=== PATIENT | male | born 1970 | race Caucasian/White ===

== ENCOUNTER 2022-06-05 16:36 | Inpatient (IN) | payer BC ==
[2022-06-05 17:39] VITALS: BMI 34.2
[2022-06-05] MEDS ORDERED: MAGNESIUM HYDROX 2400MG/30ML ORAL SUSPENSION 30 ML CUP PO PRN (18:34)
[2022-06-05] MEDS ORDERED: NALOXONE HCL (KLOXXADO) 8 MG SPRAY NS PRN (18:34)
[2022-06-05] MEDS ORDERED: NALOXONE HCL 0.4 MG/ML VIAL IM PRN (18:34)
[2022-06-05] MEDS ORDERED: P-EPHED 60MG/TRIPROLIDI 2.5MG TABLET PO PRN (18:34)
[2022-06-05] MEDS ORDERED: MAG HYDROX/AL HYDROX/SIMETH 30 ML UNIT-DOSE CUP PO PRN (18:34)
[2022-06-05] MEDS ORDERED: guaiFENesin 200 MG/10 ML 10 ML UNIT-DOSE CUPS PO PRN (18:34)
[2022-06-05] MEDS ORDERED: MAGNESIUM CITRATE 300 ML BOTTLE PO PRN (18:34)
[2022-06-05] MEDS ORDERED: IBUPROFEN 400 MG TABLET (FP) PO PRN (18:34)
[2022-06-05] MEDS ORDERED: NICOTINE 10 MG CARTRIDGE (INHALER) IH PRN (18:34)
[2022-06-05] MEDS ORDERED: ACETAMINOPHEN 325 MG TABLET (FP) PO PRN (18:34)
[2022-06-05] MEDS ORDERED: LOPERAMIDE HCL 2 MG CAPSULE PO PRN (18:34)
[2022-06-05] MEDS ORDERED: MELATONIN 5 MG TABLETS PO SCH (22:00)
[2022-06-05] MEDS ORDERED: THIAMINE HCL 100 MG TABLET (FP) PO SCH (22:00)
[2022-06-05] MEDS: hydrOXYzine PAMOATE 25 MG CAPSULE (FP) PO PRN (22:31)
[2022-06-05] MEDS ORDERED: hydrOXYzine PAMOATE 25 MG CAPSULE (FP) PO ONE (22:32)
[2022-06-06 06:58] VITALS: RESP 16; TEMP 97.7
[2022-06-06] MEDS: hydrOXYzine PAMOATE 25 MG CAPSULE (FP) PO PRN (07:55)
[2022-06-06] MEDS ORDERED: NICOTINE 7 MG/24 HOURS TOPICAL PATCH TD SCH (10:00)
[2022-06-06] MEDS ORDERED: PRENATAL VITAMINS W/ FOLIC ACID TABLET (FP) PO SCH (10:00)
[2022-06-06 10:12] LABS: HEMATOCRIT 44.3 % (35.4-49); HEMOGLOBIN 14.4 GM/dL (11.7-16.9); MCH 28.4 pg (25.7-33.7); MCHC 32.5 g/dl (32.0-35.9); MEAN CELL VOLUME 87.5 fl (80-96); MEAN PLT VOLUME 8.4 fl (7.5-11.1); PLATELET COUNT 381 10^3/uL (134-434); RBC 5.06 M/mm3 (4.00-5.60); RDW 14.7 % (11.9-15.9); WHITE BLOOD COUNT 14.7 K/mm3 (4.0-10.0)
[2022-06-06 10:38] VITALS: BP 153/83
[2022-06-06] MEDS ORDERED: IBUPROFEN 600 MG TABLET (FP) PO PRN (10:43)
[2022-06-06] MEDS ORDERED: BENZOCAINE/MENTHOL (CHLORASEPTIC ) LOZENGE MM PRN (10:43)
[2022-06-06] MEDS ORDERED: BISMUTH SUBSALICYLATE 524 MG/30 ML PO PRN (10:43)
[2022-06-06] MEDS ORDERED: DICYCLOMINE HCL 10 MG CAPSULE PO PRN (10:43)
[2022-06-06] MEDS ORDERED: METHOCARBAMOL 500 MG TABLET PO PRN (10:43)
[2022-06-06] MEDS ORDERED: ONDANSETRON *ODT* 4 MG TABLET SL PRN (10:43)
[2022-06-06 11:05] LABS: ALBUMIN 3.4 g/dl (3.4-5.0); BLOOD UREA NITROGEN 15.6 mg/dL (7-18); CALCIUM 8.7 mg/dL (8.5-10.1)
[2022-06-06 11:07] VITALS: PULSE 98
[2022-06-06 11:08] LABS: CREATININE 0.8 mg/dL (0.55-1.3)
[2022-06-06 11:10] LABS: BILIRUBIN,TOTAL 0.4 mg/dL (0.2-1); TOT PROT 6.8 g/dl (6.4-8.2)
[2022-06-06 11:43] LABS: SYPHILIS W/ RPR CONF NON-REACTIVE (NONREACTIVE)
[2022-06-06] MEDS ORDERED: FLU VACC QS2022-23(6MOS UP)/PF 60 MCG/0.5 ML SYRINGE IM ONE (12:00)
== END 2022-06-06 11:39 | disposition short-term general hospital (02) | DRG 772 ==
LOC: YASAS 16:36 → Y5N 22:18
PROVIDERS: ADMIT Allergy & Immunology; ATTEND Psychiatry & Neurology Pain Medicine
PROC: HZ42ZZZ Group Counseling for Substance Abuse Treatment, Cognitive-Behavioral (ICD-10-PCS; principal; 2022-06-05)
DX: F11.20 Opioid dependence, uncomplicated (principal); F14.20 Cocaine dependence, uncomplicated; F12.20 Cannabis dependence, uncomplicated; F17.210 Nicotine dependence, cigarettes, uncomplicated; S62.606D Fracture of unspecified phalanx of right little finger, subsequent encounter for fracture with routine healing; X58.XXXD Exposure to other specified factors, subsequent encounter
CPT/HCPCS: 36415; 80053; 85027; 86780; 86803; C9803-CS; U0003; U0005

== ENCOUNTER 2022-06-06 11:57 | Inpatient (IN) | payer BC ==
[~2022-06-06 11:57] MED LIST: ACETAMINOPHEN 325 MG TABLET (FP) PO PRN; BENZOCAINE/MENTHOL (CHLORASEPTIC ) LOZENGE MM PRN; BISMUTH SUBSALICYLATE 262 MG/15 ML BTL PO PRN; DICYCLOMINE HCL 10 MG CAPSULE PO PRN; IBUPROFEN 400 MG TABLET (FP) PO PRN; IBUPROFEN 600 MG TABLET (FP) PO PRN; LOPERAMIDE HCL 2 MG CAPSULE PO PRN; MAG HYDROX/AL HYDROX/SIMETH 30 ML UNIT-DOSE CUP PO PRN; MAGNESIUM HYDROX 2400MG/30ML ORAL SUSPENSION 30 ML CUP PO PRN; NALOXONE HCL (KLOXXADO) 8 MG SPRAY NS PRN; NALOXONE HCL 0.4 MG/ML VIAL IM PRN; P-EPHED 60MG/TRIPROLIDI 2.5MG TABLET PO PRN; POLYETHYLENE GLYCOL (HEALTHYLAX) 3350 17 GM PACKET PO PRN; guaiFENesin 200 MG/10 ML 10 ML UNIT-DOSE CUPS PO PRN; methaDONE HCL 10 MG TABLET (FOR DETOX USE ONLY) PO ONE
[2022-06-06] MEDS: cloNIDine HCL 0.1 MG TABLET PO PRN ×2 (12:20→22:31)
[2022-06-06] MEDS: ONDANSETRON *ODT* 4 MG TABLET SL PRN (14:00)
[2022-06-06] MEDS: THIAMINE HCL 100 MG TABLET (FP) PO SCH (22:31)
[2022-06-06] MEDS: MELATONIN 5 MG TABLETS PO PRN (22:31)
[2022-06-06] MEDS: METHOCARBAMOL 500 MG TABLET PO PRN (22:31)
[2022-06-07] MEDS: cloNIDine HCL 0.1 MG TABLET PO PRN ×3 (10:14→23:08)
[2022-06-07] MEDS: ONDANSETRON *ODT* 4 MG TABLET SL PRN (10:14)
[2022-06-07] MEDS: METHOCARBAMOL 500 MG TABLET PO PRN ×3 (10:15→23:08)
[2022-06-07] MEDS: PRENATAL VITAMINS W/ FOLIC ACID TABLET (FP) PO SCH (10:15)
[2022-06-07] MEDS: hydrOXYzine PAMOATE 25 MG CAPSULE (FP) PO PRN (16:01)
[2022-06-07] MEDS: THIAMINE HCL 100 MG TABLET (FP) PO SCH (22:51)
[2022-06-07] MEDS: MELATONIN 5 MG TABLETS PO PRN (23:08)
[2022-06-07] MEDS: TRIMETHOBENZAMIDE HCL 200MG/2ML INJ IM PRN (23:55)
[2022-06-08] MEDS: cloNIDine HCL 0.1 MG TABLET PO PRN ×2 (03:14→08:33)
[2022-06-08] MEDS: hydrOXYzine PAMOATE 25 MG CAPSULE (FP) PO PRN ×2 (03:15→08:33)
[2022-06-08] MEDS: METHOCARBAMOL 500 MG TABLET PO PRN (08:33)
[2022-06-08] MEDS: TRIMETHOBENZAMIDE HCL 200MG/2ML INJ IM PRN (08:33)
[2022-06-08] MEDS: ONDANSETRON *ODT* 4 MG TABLET SL PRN (08:33)
[2022-06-08 09:15] VITALS: RESP 17
[2022-06-08] MEDS ORDERED: methaDONE HCL 10 MG TABLET (FOR DETOX USE ONLY) PO ONE (10:00)
[2022-06-08] MEDS: PRENATAL VITAMINS W/ FOLIC ACID TABLET (FP) PO SCH (10:26)
[2022-06-08] MEDS ORDERED: diazePAM 5 MG TABLET PO ONE (11:05)
[2022-06-08] MEDS: THIAMINE HCL 100 MG TABLET (FP) PO SCH (21:19)
[2022-06-09 06:36] VITALS: BP 124/81; PULSE 85; TEMP 97
[2022-06-10] MEDS ORDERED: methaDONE HCL 10 MG TABLET (FOR DETOX USE ONLY) PO ONE (10:00)
== END 2022-06-08 23:55 | disposition short-term general hospital (02) | DRG 773 ==
LOC: YASAS 11:57 → Y3N 11:58
PROVIDERS: ADMIT Allergy & Immunology; ATTEND Surgery
PROC: HZ2ZZZZ Detoxification Services for Substance Abuse Treatment (ICD-10-PCS; principal; 2022-06-06)
DX: F10.230 Alcohol dependence with withdrawal, uncomplicated (principal); F11.23 Opioid dependence with withdrawal; F13.20 Sedative, hypnotic or anxiolytic dependence, uncomplicated; F14.20 Cocaine dependence, uncomplicated; F17.210 Nicotine dependence, cigarettes, uncomplicated; D72.829 Elevated white blood cell count, unspecified; R11.2 Nausea with vomiting, unspecified
CPT/HCPCS: Q0162

== ENCOUNTER 2022-06-08 11:58 | Inpatient (IN) | payer BC ==
[2022-06-08] MEDS ORDERED: SODIUM CHLORIDE 0.9% 500 ML INFUS.BAG IV ONE (12:49)
[2022-06-08 15:09] LABS: VENOUS BASE EXCESS 4.8 mmol/L (-2-2); VENOUS O2 SATURATION 97.5 % (70-80); VENOUS PCO2 33.1 mmHg (38-52); VENOUS PH 7.531 (7.310-7.410)
[2022-06-08 15:36] LABS: BASO % 0.3 % (0-2.0); HEMATOCRIT 41.5 % (35.4-49); HEMOGLOBIN 13.7 GM/dL (11.7-16.9); LYMPH % 7.8 % (8-40); MCH 28.7 pg (25.7-33.7); MCHC 33.1 g/dl (32.0-35.9); MEAN CELL VOLUME 86.7 fl (80-96); MEAN PLT VOLUME 7.8 fl (7.5-11.1); MONO % 7.2 % (3.8-10.2); NEUT % 84.7 % (42.8-82.8); PLATELET COUNT 375 10^3/uL (134-434); RBC 4.79 M/mm3 (4.00-5.60)
[2022-06-08 15:55] LABS: MAGNESIUM 1.8 mg/dL (1.8-2.4)
[2022-06-08 15:56] LABS: ALBUMIN 3.2 g/dl (3.4-5.0); BLOOD UREA NITROGEN 19.6 mg/dL (7-18); CALCIUM 8.7 mg/dL (8.5-10.1)
[2022-06-08 15:58] LABS: CREATININE 0.9 mg/dL (0.55-1.3)
[2022-06-08 16:00] LABS: PHOSPHOROUS 3.1 mg/dL (2.5-4.9); TOT PROT 6.4 g/dl (6.4-8.2)
[2022-06-08 16:02] LABS: BILIRUBIN,TOTAL 0.6 mg/dL (0.2-1)
[2022-06-08] MEDS ORDERED: MAG HYDROX/AL HYDROX/SIMETH 30 ML UNIT-DOSE CUP PO ONE (17:59)
[2022-06-08] MEDS ORDERED: ONDANSETRON 4 MG/2 ML VIAL IVPB ONE (17:59)
[2022-06-08] MEDS ORDERED: FAMOTIDINE 20 MG/50 ML IVPB 20 MG/50 ML MG IVPB ONE ×2 (18:20→18:26)
[2022-06-08] MEDS ORDERED: MAG HYDROX/AL HYDROX/SIMETH 30 ML UNIT-DOSE CUP ONE (18:26)
[2022-06-08] MEDS ORDERED: ONDANSETRON 4 MG/2 ML VIAL ONE (18:27)
[2022-06-08] MEDS ORDERED: LACTATED RINGERS SOLUTION 1000 ML INFUS.BAG IV ONE (18:40)
[2022-06-08] MEDS ORDERED: ONDANSETRON 4 MG/2 ML VIAL IVPUSH ONE (21:44)
[2022-06-08] MEDS ORDERED: PANTOPRAZOLE SODIUM 40 MG VIAL IVPUSH ONE (22:56)
[2022-06-09] MEDS ORDERED: FOLIC ACID INJECTION - 1 MG, THIAMINE HCL 100 MG, MULTIVIT INJECTION ADULT 10 ML in SOD... IVPB ONE (01:47)
[2022-06-09] MEDS ORDERED: TRIMETHOBENZAMIDE HCL 200MG/2ML INJ IM PRN (01:52)
[2022-06-09] MEDS ORDERED: cloNIDine HCL 0.1 MG TABLET PO PRN (01:53)
[2022-06-09 01:57] LABS: PH,URINE 7.5 (5.0-8.0); URINE APPEARANCE CLEAR; URINE BILIRUBIN NEGATIVE (NEGATIVE); URINE COLOR YELLOW; URINE GLUCOSE (UA) NEGATIVE (NEGATIVE); URINE KETONE NEGATIVE (NEGATIVE); URINE LEUK ESTERASE NEGATIVE (NEGATIVE); URINE NITRITE NEGATIVE (NEGATIVE); URINE PROTEIN NEGATIVE (NEGATIVE)
[2022-06-09] MEDS ORDERED: POTASSIUM CHLORIDE TABS 10 MEQ TABLET.ER (FP) PO ONE (02:45)
[2022-06-09] MEDS ORDERED: MAGNESIUM SULF 50% (8.12 MEQ/2 ML-1 GM VIAL) IVPB ONE (02:45)
[2022-06-09] MEDS ORDERED: KCL 10 MEQ IVPB 10 MEQ/100 ML INFUS.BAG IVPB SCH (02:45)
[2022-06-09] MEDS: diazePAM 5 MG TABLET PO PRN (03:03)
[2022-06-09] MEDS: CEFAZOLIN 1 GM in DEXTROSE 5%-WATER - 50 ML IVPB SCH ×3 (03:21→17:42)
[2022-06-09] MEDS: diazePAM 5 MG TABLET PO SCH ×4 (05:45→22:22)
[2022-06-09 07:09] VITALS: BMI 34.0
[2022-06-09] MEDS ORDERED: POTASSIUM CHLORIDE TABS 20 MEQ TABLET.ER (FP) PO ONE (08:06)
[2022-06-09] MEDS ORDERED: SODIUM CHLORIDE 1,000 ML IV SCH (08:15)
[2022-06-09 11:11] LABS: BASO % 0.1 % (0-2.0); HEMATOCRIT 40.7 % (35.4-49); HEMOGLOBIN 13.3 GM/dL (11.7-16.9); LYMPH % 8.6 % (8-40); MCH 28.3 pg (25.7-33.7); MCHC 32.8 g/dl (32.0-35.9); MEAN CELL VOLUME 86.4 fl (80-96); MEAN PLT VOLUME 8.2 fl (7.5-11.1); MONO % 8.3 % (3.8-10.2); PLATELET COUNT 354 10^3/uL (134-434); RBC 4.71 M/mm3 (4.00-5.60); RDW 14.5 % (11.9-15.9); WHITE BLOOD COUNT 16.4 K/mm3 (4.0-10.0)
[2022-06-09] MEDS: FOLIC ACID 1 MG TABLET (FP) PO SCH (11:35)
[2022-06-09] MEDS: THIAMINE HCL 100 MG TABLET (FP) PO SCH (11:35)
[2022-06-09] MEDS: NICOTINE 14 MG/24 HOURS TOPICAL PATCH TD SCH (11:36)
[2022-06-09] MEDS: ENOXAPARIN NA (PORCINE) 40 MG/0.4 ML DISP.SYRIN SQ SCH (11:36)
[2022-06-09] MEDS: DOCUSATE SODIUM 100 MG CAPSULE (FP) PO SCH ×2 (15:03→22:22)
[2022-06-09] MEDS ORDERED: ACETAMINOPHEN 325 MG TABLET (FP) PO ONE (17:24)
[2022-06-10] MEDS: CEFAZOLIN 1 GM in DEXTROSE 5%-WATER - 50 ML IVPB SCH ×3 (01:28→17:25)
[2022-06-10] MEDS: diazePAM 5 MG TABLET PO PRN (02:52)
[2022-06-10] MEDS: diazePAM 5 MG TABLET PO SCH ×3 (05:53→21:35)
[2022-06-10] MEDS: DOCUSATE SODIUM 100 MG CAPSULE (FP) PO SCH ×3 (05:53→21:36)
[2022-06-10] MEDS ORDERED: CEFTRIAXONE 1,000 MG in DEXTROSE 5%-WATER - 50 ML IVPB ONE (09:07)
[2022-06-10] MEDS: THIAMINE HCL 100 MG TABLET (FP) PO SCH (09:18)
[2022-06-10] MEDS: FOLIC ACID 1 MG TABLET (FP) PO SCH (09:18)
[2022-06-10] MEDS: ENOXAPARIN NA (PORCINE) 40 MG/0.4 ML DISP.SYRIN SQ SCH (09:21)
[2022-06-10] MEDS: NICOTINE 14 MG/24 HOURS TOPICAL PATCH TD SCH (09:21)
[2022-06-10] MEDS ORDERED: methaDONE HCL 10 MG TABLET PO ONE (10:00)
[2022-06-10] MEDS: diazePAM 5 MG TABLET PO ONE (10:15)
[2022-06-10 11:31] LABS: BASO % 0.2 % (0-2.0); HEMATOCRIT 39.1 % (35.4-49); HEMOGLOBIN 12.9 GM/dL (11.7-16.9); LYMPH % 8.9 % (8-40); MCH 28.6 pg (25.7-33.7); MCHC 33.1 g/dl (32.0-35.9); MEAN CELL VOLUME 86.6 fl (80-96); MEAN PLT VOLUME 8.3 fl (7.5-11.1); NEUT % 82.9 % (42.8-82.8); PLATELET COUNT 368 10^3/uL (134-434); RBC 4.51 M/mm3 (4.00-5.60); RDW 14.3 % (11.9-15.9)
[2022-06-10 11:37] LABS: HEMATOCRIT 38.8 % (35.4-49); HEMOGLOBIN 12.7 GM/dL (11.7-16.9); MCH 28.5 pg (25.7-33.7); MCHC 32.8 g/dl (32.0-35.9); MEAN CELL VOLUME 86.7 fl (80-96); MEAN PLT VOLUME 8.2 fl (7.5-11.1); PLATELET COUNT 364 10^3/uL (134-434); RBC 4.47 M/mm3 (4.00-5.60); RDW 14.3 % (11.9-15.9); WHITE BLOOD COUNT 15.2 K/mm3 (4.0-10.0)
[2022-06-10] MEDS: LACTATED RINGERS SOLUTION 1,000 ML/1,000 ML INFUS.BAG IV SCH (11:46)
[2022-06-10 12:22] LABS: CALCIUM 8.3 mg/dL (8.5-10.1)
[2022-06-10 12:23] LABS: MAGNESIUM 2.3 mg/dL (1.8-2.4)
[2022-06-10 12:26] LABS: CREATININE 0.9 mg/dL (0.55-1.3); PHOSPHOROUS 2.3 mg/dL (2.5-4.9)
[2022-06-10 12:27] LABS: BLOOD UREA NITROGEN 9.7 mg/dL (7-18)
[2022-06-10 12:28] LABS: BILIRUBIN,TOTAL 0.5 mg/dL (0.2-1); TOT PROT 6.1 g/dl (6.4-8.2)
[2022-06-10 14:09] LABS: CALCIUM 8.4 mg/dL (8.5-10.1)
[2022-06-10 14:13] LABS: CREATININE 0.9 mg/dL (0.55-1.3)
[2022-06-10] MEDS ORDERED: ARTIFICIAL TEARS (POLYVINYL ALCOHOL) OPTH DROPS OU ONE (21:35)
[2022-06-11] MEDS: CEFAZOLIN 1 GM in DEXTROSE 5%-WATER - 50 ML IVPB SCH ×3 (01:10→17:15)
[2022-06-11] MEDS: LACTATED RINGERS SOLUTION 1,000 ML/1,000 ML INFUS.BAG IV SCH ×2 (03:45→13:15)
[2022-06-11] MEDS: diazePAM 5 MG TABLET PO SCH ×2 (06:08→17:40)
[2022-06-11] MEDS: DOCUSATE SODIUM 100 MG CAPSULE (FP) PO SCH ×3 (06:12→21:25)
[2022-06-11] MEDS: NICOTINE 14 MG/24 HOURS TOPICAL PATCH TD SCH (09:54)
[2022-06-11] MEDS: ENOXAPARIN NA (PORCINE) 40 MG/0.4 ML DISP.SYRIN SQ SCH (09:56)
[2022-06-11] MEDS: THIAMINE HCL 100 MG TABLET (FP) PO SCH (09:56)
[2022-06-11] MEDS: FOLIC ACID 1 MG TABLET (FP) PO SCH (09:56)
[2022-06-11] MEDS: ESCITALOPRAM OXALATE 10 MG TABLET PO SCH (09:56)
[2022-06-11 12:54] LABS: CALCIUM 8.8 mg/dL (8.5-10.1)
[2022-06-11 12:55] LABS: BLOOD UREA NITROGEN 9.8 mg/dL (7-18)
[2022-06-11 12:58] LABS: CREATININE 0.8 mg/dL (0.55-1.3)
[2022-06-11] MEDS: diazePAM 5 MG TABLET PO PRN ×2 (15:54→20:49)
[2022-06-11] MEDS: POTASSIUM CHLORIDE TABS 20 MEQ TABLET.ER (FP) PO SCH (16:00)
[2022-06-12] MEDS: CEFAZOLIN 1 GM in DEXTROSE 5%-WATER - 50 ML IVPB SCH ×3 (01:27→17:30)
[2022-06-12] MEDS: diazePAM 5 MG TABLET PO PRN (01:53)
[2022-06-12] MEDS: DOCUSATE SODIUM 100 MG CAPSULE (FP) PO SCH ×3 (06:34→21:57)
[2022-06-12] MEDS: diazePAM 5 MG TABLET PO ONE (06:35)
[2022-06-12 09:17] LABS: BASO % 0.2 % (0-2.0); EOS % 0.3 % (0-4.5); HEMATOCRIT 39.3 % (35.4-49); LYMPH % 14.7 % (8-40); MCH 28.6 pg (25.7-33.7); MCHC 33.1 g/dl (32.0-35.9); MEAN CELL VOLUME 86.2 fl (80-96); MEAN PLT VOLUME 8.2 fl (7.5-11.1); MONO % 3.9 % (3.8-10.2); NEUT % 80.9 % (42.8-82.8); PLATELET COUNT 385 10^3/uL (134-434); RBC 4.56 M/mm3 (4.00-5.60); WHITE BLOOD COUNT 13.9 K/mm3 (4.0-10.0)
[2022-06-12 09:27] LABS: BLOOD UREA NITROGEN 7.7 mg/dL (7-18); CALCIUM 8.9 mg/dL (8.5-10.1)
[2022-06-12 09:31] LABS: CREATININE 0.9 mg/dL (0.55-1.3)
[2022-06-12 09:33] LABS: BILIRUBIN,TOTAL 0.5 mg/dL (0.2-1); TOT PROT 6.1 g/dl (6.4-8.2)
[2022-06-12] MEDS: ESCITALOPRAM OXALATE 10 MG TABLET PO SCH (09:37)
[2022-06-12] MEDS: ENOXAPARIN NA (PORCINE) 40 MG/0.4 ML DISP.SYRIN SQ SCH (09:38)
[2022-06-12] MEDS: NICOTINE 14 MG/24 HOURS TOPICAL PATCH TD SCH (09:38)
[2022-06-12] MEDS: FOLIC ACID 1 MG TABLET (FP) PO SCH (09:38)
[2022-06-12] MEDS: POTASSIUM CHLORIDE TABS 20 MEQ TABLET.ER (FP) PO SCH (09:38)
[2022-06-12] MEDS ORDERED: methaDONE HCL 10 MG TABLET PO ONE (10:00)
[2022-06-12] MEDS: THIAMINE HCL 100 MG TABLET (FP) PO SCH (10:43)
[2022-06-12] MEDS: LORazepam 2 MG/ML SDV VIAL IVPUSH PRN ×3 (12:56→22:04)
[2022-06-12] MEDS ORDERED: POTASSIUM CHLORIDE TABS 20 MEQ TABLET.ER (FP) PO ONE (14:24)
[2022-06-12] MEDS: NICOTINE POLACRILEX 2 MG GUM BUC PRN (14:46)
[2022-06-12] MEDS: NAPH,MB-DB/K PH,MBDB POWDER PACKET PO SCH (21:57)
[2022-06-13] MEDS: CEFAZOLIN 1 GM in DEXTROSE 5%-WATER - 50 ML IVPB SCH ×2 (01:52→09:10)
[2022-06-13] MEDS: LORazepam 2 MG/ML SDV VIAL IVPUSH PRN ×3 (02:40→13:52)
[2022-06-13] MEDS: DOCUSATE SODIUM 100 MG CAPSULE (FP) PO SCH ×4 (05:10→21:55)
[2022-06-13] MEDS: NAPH,MB-DB/K PH,MBDB POWDER PACKET PO SCH (09:09)
[2022-06-13] MEDS: THIAMINE HCL 100 MG TABLET (FP) PO SCH (09:09)
[2022-06-13] MEDS: FOLIC ACID 1 MG TABLET (FP) PO SCH (09:09)
[2022-06-13] MEDS: ESCITALOPRAM OXALATE 10 MG TABLET PO SCH (09:09)
[2022-06-13] MEDS: POTASSIUM CHLORIDE TABS 20 MEQ TABLET.ER (FP) PO SCH (09:09)
[2022-06-13] MEDS: ENOXAPARIN NA (PORCINE) 40 MG/0.4 ML DISP.SYRIN SQ SCH (09:10)
[2022-06-13] MEDS: NICOTINE 14 MG/24 HOURS TOPICAL PATCH TD SCH (09:10)
[2022-06-13 11:53] LABS: BASO % 0.5 % (0-2.0); EOS % 0.8 % (0-4.5); HEMATOCRIT 45.8 % (35.4-49); HEMOGLOBIN 14.6 GM/dL (11.7-16.9); LYMPH % 14.4 % (8-40); MCH 28.2 pg (25.7-33.7); MCHC 31.8 g/dl (32.0-35.9); MEAN CELL VOLUME 88.6 fl (80-96); MONO % 7.5 % (3.8-10.2); NEUT % 76.8 % (42.8-82.8); PLATELET COUNT 350 10^3/uL (134-434); RBC 5.17 M/mm3 (4.00-5.60); RDW 14.8 % (11.9-15.9); WHITE BLOOD COUNT 15.5 K/mm3 (4.0-10.0)
[2022-06-13 12:29] LABS: CALCIUM 8.9 mg/dL (8.5-10.1)
[2022-06-13 12:30] LABS: BLOOD UREA NITROGEN 9.7 mg/dL (7-18); MAGNESIUM 2.3 mg/dL (1.8-2.4)
[2022-06-13 12:33] LABS: CREATININE 0.9 mg/dL (0.55-1.3); PHOSPHOROUS 3.5 mg/dL (2.5-4.9)
[2022-06-13 12:34] LABS: BILIRUBIN,TOTAL 0.4 mg/dL (0.2-1)
[2022-06-13] MEDS: NICOTINE POLACRILEX 2 MG GUM BUC PRN (20:41)
[2022-06-13] MEDS: CEPHALEXIN MONOHYDRATE 500 MG CAPSULE (UD) PO SCH (21:55)
[2022-06-13] MEDS: diazePAM 5 MG TABLET PO PRN (21:55)
[2022-06-14] MEDS: DOCUSATE SODIUM 100 MG CAPSULE (FP) PO SCH ×3 (06:29→21:35)
[2022-06-14] MEDS: THIAMINE HCL 100 MG TABLET (FP) PO SCH ×2 (08:16→09:11)
[2022-06-14] MEDS: ESCITALOPRAM OXALATE 10 MG TABLET PO SCH ×2 (08:16→09:11)
[2022-06-14] MEDS: diazePAM 5 MG TABLET PO PRN ×2 (08:16→21:38)
[2022-06-14] MEDS: NICOTINE 14 MG/24 HOURS TOPICAL PATCH TD SCH ×2 (08:17→09:11)
[2022-06-14] MEDS: POTASSIUM CHLORIDE TABS 20 MEQ TABLET.ER (FP) PO SCH ×2 (08:17→09:11)
[2022-06-14] MEDS: CEPHALEXIN MONOHYDRATE 500 MG CAPSULE (UD) PO SCH ×3 (08:17→21:35)
[2022-06-14] MEDS: FOLIC ACID 1 MG TABLET (FP) PO SCH ×2 (08:17→09:11)
[2022-06-14] MEDS: ENOXAPARIN NA (PORCINE) 40 MG/0.4 ML DISP.SYRIN SQ SCH ×2 (08:17→09:11)
[2022-06-14] MEDS: NAPH,MB-DB/K PH,MBDB POWDER PACKET PO SCH (09:42)
[2022-06-14] MEDS ORDERED: methaDONE HCL 10 MG TABLET (FOR DETOX USE ONLY) PO SCH ×2 (11:00→11:29)
[2022-06-14] MEDS ORDERED: methaDONE HCL 10 MG TABLET (FOR DETOX USE ONLY) PO ONE (11:29)
[2022-06-14] MEDS: NICOTINE POLACRILEX 2 MG GUM BUC PRN ×2 (18:15→21:35)
[2022-06-14] MEDS ORDERED: ACETAMINOPHEN 325 MG TABLET (FP) PO PRN (22:21)
[2022-06-15] MEDS: MELATONIN 5 MG TABLETS PO SCH ×2 (01:05→23:44)
[2022-06-15] MEDS: DOCUSATE SODIUM 100 MG CAPSULE (FP) PO SCH ×4 (06:09→23:44)
[2022-06-15] MEDS: ENOXAPARIN NA (PORCINE) 40 MG/0.4 ML DISP.SYRIN SQ SCH (09:46)
[2022-06-15] MEDS: ESCITALOPRAM OXALATE 10 MG TABLET PO SCH (10:26)
[2022-06-15] MEDS: FOLIC ACID 1 MG TABLET (FP) PO SCH (10:26)
[2022-06-15] MEDS: THIAMINE HCL 100 MG TABLET (FP) PO SCH (10:26)
[2022-06-15] MEDS: CEPHALEXIN MONOHYDRATE 500 MG CAPSULE (UD) PO SCH (10:26)
[2022-06-15] MEDS: POTASSIUM CHLORIDE TABS 20 MEQ TABLET.ER (FP) PO SCH (10:26)
[2022-06-15] MEDS: NAPH,MB-DB/K PH,MBDB POWDER PACKET PO SCH (10:26)
[2022-06-15] MEDS: NICOTINE 14 MG/24 HOURS TOPICAL PATCH TD SCH (10:45)
[2022-06-15] MEDS: DOXYCYCLINE HYCLATE 100 MG CAPSULE PO SCH (14:53)
[2022-06-16] MEDS: DOCUSATE SODIUM 100 MG CAPSULE (FP) PO SCH (05:15)
[2022-06-16] MEDS ORDERED: methaDONE HCL 10 MG TABLET (FOR DETOX USE ONLY) PO ONE (09:40)
[2022-06-16] MEDS ORDERED: methaDONE 40 MG, methaDONE 20 MG PO ONE (09:45)
[2022-06-16] MEDS: POTASSIUM CHLORIDE TABS 20 MEQ TABLET.ER (FP) PO SCH (09:51)
[2022-06-16] MEDS: ESCITALOPRAM OXALATE 10 MG TABLET PO SCH (09:51)
[2022-06-16] MEDS: FOLIC ACID 1 MG TABLET (FP) PO SCH (09:51)
[2022-06-16] MEDS: THIAMINE HCL 100 MG TABLET (FP) PO SCH (09:52)
[2022-06-16] MEDS: NAPH,MB-DB/K PH,MBDB POWDER PACKET PO SCH (09:52)
[2022-06-16] MEDS: DOXYCYCLINE HYCLATE 100 MG CAPSULE PO SCH (09:52)
[2022-06-16] MEDS: NICOTINE 14 MG/24 HOURS TOPICAL PATCH TD SCH (10:55)
[2022-06-16 12:46] VITALS: TEMP 98.3
[2022-06-16 14:59] VITALS: BP 129/90; PULSE 84; RESP 18
== END 2022-06-16 15:16 | disposition home or self-care (01) | DRG 344 ==
LOC: JER 11:58 → JERBED 23:52 → J5S 06-09 02:01 → J6S 06-11 14:39
PROVIDERS: ADMIT Internal Medicine; ATTEND Internal Medicine
PROC: 2W3JX1Z Immobilization of Right Finger using Splint (ICD-10-PCS; principal; 2022-06-08)
PROC: HZ2ZZZZ Detoxification Services for Substance Abuse Treatment (ICD-10-PCS; 2022-06-08)
DX: M86.8X8 Other osteomyelitis, other site (principal); K29.80 Duodenitis without bleeding; E83.42 Hypomagnesemia; F10.239 Alcohol dependence with withdrawal, unspecified; F11.23 Opioid dependence with withdrawal; E87.6 Hypokalemia; F17.210 Nicotine dependence, cigarettes, uncomplicated; R11.2 Nausea with vomiting, unspecified; D72.829 Elevated white blood cell count, unspecified; F39 Unspecified mood [affective] disorder; E87.3 Alkalosis; F19.10 Other psychoactive substance abuse, uncomplicated; S62.666A Nondisplaced fracture of distal phalanx of right little finger, initial encounter for closed fracture; S60.151A Contusion of right little finger with damage to nail, initial encounter; X58.XXXA Exposure to other specified factors, initial encounter; Y93.89 Activity, other specified; Y92.89 Other specified places as the place of occurrence of the external cause
CPT/HCPCS: 0241U-QW; 36415; 71046-TC-FY; 73130-TC-RT-FY; 73218-TC-RT; 74177-TC; 80048; 80053; 81003; 82010; 82803; 82962; 83690; 83735; 84100; 84484; 85025; 85027; 87086; 87186; 93005; 93010; 99285-25; Q9967

== ENCOUNTER 2022-06-24 11:26 | Inpatient (IN) | payer BC ==
[2022-06-24 13:16] VITALS: BMI 31.0
[2022-06-24] MEDS ORDERED: LOPERAMIDE HCL 2 MG CAPSULE PO PRN (15:18)
[2022-06-24] MEDS ORDERED: cloNIDine HCL 0.1 MG TABLET PO PRN (15:18)
[2022-06-24] MEDS ORDERED: POLYETHYLENE GLYCOL (HEALTHYLAX) 3350 17 GM PACKET PO PRN (15:18)
[2022-06-24] MEDS ORDERED: BENZOCAINE/MENTHOL (CHLORASEPTIC ) LOZENGE MM PRN (15:18)
[2022-06-24] MEDS ORDERED: IBUPROFEN 400 MG TABLET (FP) PO PRN (15:18)
[2022-06-24] MEDS ORDERED: NICOTINE 10 MG CARTRIDGE (INHALER) IH PRN (15:18)
[2022-06-24] MEDS ORDERED: ACETAMINOPHEN 325 MG TABLET (FP) PO PRN (15:18)
[2022-06-24] MEDS ORDERED: MAG HYDROX/AL HYDROX/SIMETH 30 ML UNIT-DOSE CUP PO PRN (15:18)
[2022-06-24] MEDS ORDERED: DICYCLOMINE HCL 10 MG CAPSULE PO PRN (15:18)
[2022-06-24] MEDS ORDERED: chlordiazePOXIDE HCL 25 MG CAPSULE PO PRN (15:18)
[2022-06-24] MEDS ORDERED: ONDANSETRON *ODT* 4 MG TABLET SL PRN (15:18)
[2022-06-24] MEDS ORDERED: BISMUTH SUBSALICYLATE 524 MG/30 ML PO PRN (15:18)
[2022-06-24] MEDS ORDERED: NALOXONE HCL (KLOXXADO) 8 MG SPRAY NS PRN (15:18)
[2022-06-24] MEDS ORDERED: MAGNESIUM HYDROX 2400MG/30ML ORAL SUSPENSION 30 ML CUP PO PRN (15:18)
[2022-06-24] MEDS ORDERED: methaDONE HCL 10 MG TABLET (FOR DETOX USE ONLY) PO ONE (17:17)
[2022-06-24] MEDS: IBUPROFEN 600 MG TABLET (FP) PO PRN (18:10)
[2022-06-24] MEDS: chlordiazePOXIDE HCL 25 MG CAPSULE PO SCH ×2 (18:14→22:29)
[2022-06-24] MEDS ORDERED: MELATONIN 5 MG TABLETS PO SCH (22:00)
[2022-06-24] MEDS: THIAMINE HCL 100 MG TABLET (FP) PO SCH (22:29)
[2022-06-24] MEDS: METHOCARBAMOL 500 MG TABLET PO PRN (22:29)
[2022-06-25] MEDS: chlordiazePOXIDE HCL 25 MG CAPSULE PO SCH ×5 (05:33→23:33)
[2022-06-25] MEDS: METHOCARBAMOL 500 MG TABLET PO PRN ×3 (05:37→21:58)
[2022-06-25] MEDS: hydrOXYzine PAMOATE 25 MG CAPSULE (FP) PO PRN (05:37)
[2022-06-25] MEDS: PRENATAL VITAMINS W/ FOLIC ACID TABLET (FP) PO SCH (10:48)
[2022-06-25] MEDS: IBUPROFEN 600 MG TABLET (FP) PO PRN (12:16)
[2022-06-25 14:47] LABS: HEMATOCRIT 37.3 % (35.4-49); HEMOGLOBIN 12.4 GM/dL (11.7-16.9); MCH 29.7 pg (25.7-33.7); MCHC 33.2 g/dl (32.0-35.9); MEAN CELL VOLUME 89.6 fl (80-96); MEAN PLT VOLUME 7.5 fl (7.5-11.1); PLATELET COUNT 336 10^3/uL (134-434); RBC 4.17 M/mm3 (4.00-5.60); RDW 14.6 % (11.9-15.9)
[2022-06-25 14:58] LABS: BILIRUBIN,TOTAL 0.6 mg/dL (0.2-1); TOT PROT 5.7 g/dl (6.4-8.2)
[2022-06-25 15:00] LABS: ALBUMIN 2.9 g/dl (3.4-5.0); BLOOD UREA NITROGEN 15.2 mg/dL (7-18)
[2022-06-25 15:01] LABS: CALCIUM 8.6 mg/dL (8.5-10.1); CREATININE 0.9 mg/dL (0.55-1.3)
[2022-06-25 15:50] LABS: HIV INTERPRETATION NEGATIVE (NEGATIVE)
[2022-06-25] MEDS: ACETAMINOPHEN 325 MG TABLET (FP) PO PRN (20:49)
[2022-06-25] MEDS: THIAMINE HCL 100 MG TABLET (FP) PO SCH (21:58)
[2022-06-25] MEDS ORDERED: P-EPHED 60MG/TRIPROLIDI 2.5MG TABLET PO PRN (22:23)
[2022-06-25] MEDS: MELATONIN 5 MG TABLETS PO SCH (23:33)
[2022-06-26] MEDS: chlordiazePOXIDE HCL 25 MG CAPSULE PO SCH ×4 (05:53→22:13)
[2022-06-26] MEDS: METHOCARBAMOL 500 MG TABLET PO PRN (09:18)
[2022-06-26] MEDS: ACETAMINOPHEN 325 MG TABLET (FP) PO PRN (09:18)
[2022-06-26] MEDS ORDERED: methaDONE HCL 10 MG TABLET (FOR DETOX USE ONLY) PO ONE (10:00)
[2022-06-26] MEDS: PRENATAL VITAMINS W/ FOLIC ACID TABLET (FP) PO SCH (10:56)
[2022-06-26] MEDS: hydrOXYzine PAMOATE 25 MG CAPSULE (FP) PO PRN (14:16)
[2022-06-26 14:30] LABS: URINE APPEARANCE Clear; URINE BILIRUBIN Negative (NEGATIVE); URINE COLOR Yellow; URINE GLUCOSE (UA) Negative (NEGATIVE); URINE KETONE Trace (NEGATIVE); URINE LEUK ESTERASE Negative (NEGATIVE); URINE NITRITE Negative (NEGATIVE); URINE PROTEIN Negative (NEGATIVE); URINE UROBILINOGEN 0.2 mg/dL (0.2-1.0)
[2022-06-26] MEDS: THIAMINE HCL 100 MG TABLET (FP) PO SCH (22:12)
[2022-06-26] MEDS: MELATONIN 5 MG TABLETS PO SCH (22:13)
[2022-06-27] MEDS ORDERED: chlordiazePOXIDE HCL 10 MG CAPSULE PO PRN
[2022-06-27] MEDS: chlordiazePOXIDE HCL 10 MG CAPSULE PO SCH ×2 (06:12→10:31)
[2022-06-27 09:28] VITALS: BP 146/88; PULSE 83; RESP 18; TEMP 96.8
[2022-06-27] MEDS: PRENATAL VITAMINS W/ FOLIC ACID TABLET (FP) PO SCH (10:55)
[2022-06-28] MEDS ORDERED: chlordiazePOXIDE HCL 10 MG CAPSULE PO SCH (05:00)
[2022-06-28] MEDS ORDERED: methaDONE HCL 10 MG TABLET (FOR DETOX USE ONLY) PO ONE (10:00)
[2022-06-29] MEDS ORDERED: chlordiazePOXIDE HCL 10 MG CAPSULE PO ONE (05:00)
== END 2022-06-27 12:13 | disposition left against medical advice (07) | DRG 770 ==
LOC: YASAS 11:26 → Y3N 16:27
PROVIDERS: ADMIT Allergy & Immunology; ATTEND Surgery
PROC: HZ2ZZZZ Detoxification Services for Substance Abuse Treatment (ICD-10-PCS; principal; 2022-06-24)
DX: F11.23 Opioid dependence with withdrawal (principal); F10.230 Alcohol dependence with withdrawal, uncomplicated; F14.20 Cocaine dependence, uncomplicated; F13.10 Sedative, hypnotic or anxiolytic abuse, uncomplicated; F12.20 Cannabis dependence, uncomplicated; F17.210 Nicotine dependence, cigarettes, uncomplicated; F19.282 Other psychoactive substance dependence with psychoactive substance-induced sleep disorder; F19.24 Other psychoactive substance dependence with psychoactive substance-induced mood disorder; F32.A Depression, unspecified; M54.50 Low back pain, unspecified; R26.89 Other abnormalities of gait and mobility; Z28.310 Unvaccinated for COVID-19; Z28.9 Immunization not carried out for unspecified reason; Z56.0 Unemployment, unspecified; Z59.00 Homelessness unspecified
CPT/HCPCS: 36415; 72100-TC-FY; 73502-TC-RT-FY; 80053; 81003; 85027; 86780; 87086; 87186; 87389; C9803-CS; U0003; U0005

== ENCOUNTER 2022-11-25 17:34 | Inpatient (IN) | payer BC ==
[2022-11-25 19:30] VITALS: BMI 29.5
[2022-11-26] MEDS ORDERED: POLYETHYLENE GLYCOL (HEALTHYLAX) 3350 17 GM PACKET PO PRN (00:27)
[2022-11-26] MEDS ORDERED: ACETAMINOPHEN 325 MG TABLET (FP) PO PRN (00:27)
[2022-11-26] MEDS ORDERED: IBUPROFEN 400 MG TABLET (FP) PO PRN (00:27)
[2022-11-26] MEDS ORDERED: AMMONIUM LACTATE 12% LOTION 225 GM BOTTLE TP PRN (00:27)
[2022-11-26] MEDS ORDERED: NALOXONE HCL (KLOXXADO) 8 MG SPRAY NS PRN (00:27)
[2022-11-26] MEDS ORDERED: NALOXONE HCL 0.4 MG/ML VIAL IM PRN (00:27)
[2022-11-26] MEDS ORDERED: BENZOCAINE/MENTHOL (CHLORASEPTIC ) LOZENGE MM PRN (00:27)
[2022-11-26] MEDS ORDERED: MAG HYDROX/AL HYDROX/SIMETH 30 ML UNIT-DOSE CUP PO PRN (00:27)
[2022-11-26] MEDS ORDERED: MAGNESIUM HYDROX 2400MG/30ML ORAL SUSPENSION 30 ML CUP PO PRN (00:27)
[2022-11-26] MEDS ORDERED: hydrOXYzine PAMOATE 25 MG CAPSULE (FP) PO PRN (00:27)
[2022-11-26] MEDS ORDERED: guaiFENesin 600 MG TABLET.ER (FP) PO PRN (00:27)
[2022-11-26] MEDS ORDERED: IBUPROFEN 600 MG TABLET (FP) PO PRN (00:27)
[2022-11-26] MEDS ORDERED: BENZONATATE 200 MG CAPSULE PO PRN (00:27)
[2022-11-26] MEDS ORDERED: COLLOIDAL OATMEAL 1 BAR EACH TP PRN (00:27)
[2022-11-26] MEDS ORDERED: LOPERAMIDE HCL 2 MG CAPSULE PO PRN (00:27)
[2022-11-26] MEDS ORDERED: NICOTINE POLACRILEX 2 MG GUM BUC PRN (00:48)
[2022-11-26] MEDS ORDERED: TUBERCULIN PPD 5 TU/0.1ML SYRINGE (IN PATIENT USE ONLY) ID ONE (02:30)
[2022-11-26] MEDS ORDERED: TUBERCULIN PPD 5 TU/0.1ML VIAL ID ONE (06:15)
[2022-11-26] MEDS ORDERED: methaDONE HCL 10 MG TABLET PO SCH (10:15)
[2022-11-26] MEDS: PRENATAL VITAMINS W/ FOLIC ACID TABLET (FP) PO SCH (10:21)
[2022-11-26] MEDS: NICOTINE 21 MG/24 HOURS TOPICAL PATCH TD SCH (10:22)
[2022-11-26] MEDS: methaDONE 40 MG, methaDONE 20 MG PO SCH (10:36)
[2022-11-26 13:04] LABS: ALBUMIN 3.2 g/dl (3.4-5.0); BLOOD UREA NITROGEN 7.9 mg/dL (7-18); CALCIUM 9.3 mg/dL (8.5-10.1); CREATININE 0.9 mg/dL (0.55-1.3)
[2022-11-26 13:05] LABS: BILIRUBIN,TOTAL 0.8 mg/dL (0.2-1); TOT PROT 6.4 g/dl (6.4-8.2)
[2022-11-26 13:20] LABS: HEMATOCRIT 38.5 % (35.4-49); HEMOGLOBIN 13.2 GM/dL (11.7-16.9); MCH 29.4 pg (25.7-33.7); MCHC 34.2 g/dl (32.0-35.9); MEAN PLT VOLUME 8.5 fl (7.5-11.1); PLATELET COUNT 356 10^3/uL (134-434); RBC 4.48 M/mm3 (4.00-5.60); RDW 14.4 % (11.9-15.9); WHITE BLOOD COUNT 5.4 K/mm3 (4.0-10.0)
[2022-11-26] MEDS ORDERED: MELATONIN 5 MG TABLETS PO SCH (22:00)
[2022-11-26] MEDS ORDERED: THIAMINE HCL 100 MG TABLET (FP) PO SCH (22:00)
[2022-11-27] MEDS: methaDONE 40 MG, methaDONE 20 MG PO SCH (06:12)
[2022-11-27] MEDS: PRENATAL VITAMINS W/ FOLIC ACID TABLET (FP) PO SCH (10:10)
[2022-11-27] MEDS: NICOTINE 21 MG/24 HOURS TOPICAL PATCH TD SCH (10:10)
[2022-11-27] MEDS ORDERED: ONDANSETRON *ODT* 4 MG TABLET SL PRN (12:19)
[2022-11-27] MEDS ORDERED: cloNIDine HCL 0.1 MG TABLET PO PRN (12:20)
[2022-11-27] MEDS ORDERED: BACLOFEN 10 MG TABLET (FP) PO PRN (12:21)
[2022-11-27 12:51] VITALS: BP 128/81; PULSE 102; RESP 20; TEMP 97.1
== END 2022-11-27 13:22 | disposition left against medical advice (07) | DRG 770 ==
LOC: YASAS 17:34 → Y3E 11-26 01:12
PROVIDERS: ADMIT Allergy & Immunology; ATTEND Psychiatry & Neurology Pain Medicine
PROC: HZ42ZZZ Group Counseling for Substance Abuse Treatment, Cognitive-Behavioral (ICD-10-PCS; principal; 2022-11-26)
DX: F11.20 Opioid dependence, uncomplicated (principal); F14.20 Cocaine dependence, uncomplicated; F12.20 Cannabis dependence, uncomplicated; F17.210 Nicotine dependence, cigarettes, uncomplicated; F32.A Depression, unspecified; E78.5 Hyperlipidemia, unspecified; M54.50 Low back pain, unspecified; G89.29 Other chronic pain; R11.2 Nausea with vomiting, unspecified; Z28.310 Unvaccinated for COVID-19; Z28.9 Immunization not carried out for unspecified reason
CPT/HCPCS: 36415; 80053; 85027; 86780; C9803-CS; J0475; Q0162; U0003; U0005